=== PATIENT | male | born 1960 | race Caucasian/White ===

== ENCOUNTER 2016-09-08 14:56 | Emergency (ER) | payer BC ==
[2016-09-08] MEDS ORDERED: DOXYcycline CAP(*) 100 MG PO ONE (16:11)
[2016-09-08 17:45] VITALS: BP 148/102
--- NOTE | 2016-10-22 08:12 | ED ---
Skin Complaint - HPI Summary HPI Summary: Patient presents with a tick on his right shoulder that has been there for less than 24 hours, but is clearly irritating his skin. He denies fever, chills, or joint pain. - History of Current Complaint Chief Complaint: EDGeneral Time Seen by Provider: 09/08/16 16:11 Stated Complaint: TICK REMOVAL Hx Obtained From: Patient, Family/Associate Director Of Sales Onset/Duration: Started Hours Ago Skin Exposure Onset/Duration: Hours Ago Timing: Constant Onset Severity: Mild Current Severity: None Pain Intensity: 0 Pain Scale Used: 0-10 Numeric Skin Location: Other: - right posterior shoulder Character: Redness Aggravating Symptom(s): Nothing Alleviating Symptom(s): Nothing Associated Signs & Symptoms: Tenderness Related History: Possible Reaction to: Insect - tick - Allergy/Home Medications Allergies/Adverse Reactions: Allergies Allergy/AdvReac Type Severity Reaction Status Date / Time No Known Allergies Allergy Verified 10/01/16 07:41 PMH/Surg Hx/FS Hx/Imm Hx Cardiovascular History: Reports: Hx Hypertension Infectious Disease History: No Infectious Disease History: Denies: Traveled Outside the [place] in Last 30 Days - Family History Known Family History: Positive: None - Social History Occupation: Employed Full-time Lives: With Family Alcohol Use: None Substance Use Type: Reports: None Smoking Status (MU): Never Smoked Tobacco Review of Systems Negative: Fever, Chills Positive: Other - tick with dime size circumferenc of erythema. Negative: Rash All Other Systems Reviewed And Are Negative: Yes Physical Exam Triage Information Reviewed: Yes Vital Signs On Initial Exam: Initial Vitals Temp Pulse Resp BP Pulse Ox 98.4 F 76 18 154/109 97 09/08/16 14:58 09/08/16 14:58 09/08/16 14:58 09/08/16 14:58 09/08/16 14:58 Vital Signs Reviewed: Yes Appearance: Positive: Well-Appearing, Pain Distress - mild Skin: Positive: Warm, Skin Color Reflects Adequate Perfusion, Dry, Tender, Soft , Erythema @ - tick with dime size circumferenc of erythema Head/Face: Positive: Normal Head/Face Inspection Eyes: Positive: EOMI, KATHYA, Conjunctiva Clear ENT: Positive: Hearing grossly normal Respiratory/Lung Sounds: Positive: Breath Sounds Present Cardiovascular: Positive: RRR Musculoskeletal: Positive: Strength/ROM Intact. Negative: Edema Left, Edema Right Neurological: Positive: Sensory/Motor Intact, Alert, Oriented to Person Place, Time, NV Bundle Intact Distally, Normal Gait Psychiatric: Positive: Affect/Mood Appropriate AVPU Assessment: Alert Procedures - Procedure Summary Procedure Summary: A "Tick-twister" was used to undermine and then twist the tick from the patient' s right shoulder. All parts of the tick appear to have been removed. Patient tolerated procedure well. Diagnostics - Vital Signs Vital Signs Temp Pulse Resp BP Pulse Ox 09/08/16 17:15 97.9 F 70 16 148/102 09/08/16 17:10 99 09/08/16 14:58 98.4 F 76 18 154/109 97 - Laboratory Lab Statement: Any lab studies that have been ordered have been reviewed, and results considered in the medical decision making process. Course/Dx - Differential Diagnoses - Skin Complaint Differential Diagnoses: Abscess, Allergic Reaction, Contact Dermatitis, Foreign Body, Head Lice, Local Allergic Reaction, Scabies, Urticaria - Diagnoses Provider Diagnoses: Tick bite of right shoulder Discharge - Discharge Plan Condition: Stable Disposition: HOME Patient Education Materials: Tick Bite (ED) Referrals: Mindi Strickland NP [Primary Care Provider] - Additional Instructions: Please follow-up with your PCP as needed. Return to the emergency department if symptoms worsen.
== END 2016-09-08 17:15 | disposition home or self-care (01) ==
LOC: ED 14:56
DX: S40.261A Insect bite (nonvenomous) of right shoulder, initial encounter (principal); W57.XXXA Bitten or stung by nonvenomous insect and other nonvenomous arthropods, initial encounter; Y93.9 Activity, unspecified; Y92.9 Unspecified place or not applicable; Y99.9 Unspecified external cause status
CPT/HCPCS: 99281; A9270-GY

== ENCOUNTER 2016-09-08 18:56 | Emergency (ER) | payer BC ==
[2016-09-08 20:34] LABS: Hematocrit 45 % (42-52); Mean Corpuscular HGB Conc 34 g/dl (31-36); Mean Corpuscular Hemoglobin 31 pg (27-31); Mean Corpuscular Volume 91 fL (80-94); Mean Platelet Volume 8 um3 (7.4-10.4); Red Blood Count 4.91 10^6/ul (4.0-5.4); Red Cell Distribution Width 13 % (10.5-15); White Blood Count 6.6 10^3/ul (3.5-10.8)
[2016-09-08 20:49] LABS: Albumin 3.9 g/dL (3.2-5.2); BUN/Creatinine Ratio 15.7 (8-20); EGFR African American 122.4 (>60); EGFR Non-African American 95.2 (>60); Globulin 2.3 g/dL (2-4); Potassium 3.5 mmol/L (3.5-5.0); Total Bilirubin 0.8 mg/dL (0.2-1.0); Total Protein 6.2 g/dL (6.4-8.9)
[2016-09-08 21:18] LABS: Urine Bilirubin Negative (Negative); Urine Glucose Negative (Negative); Urine Nitrite Negative (Negative)
[2016-09-08] MEDS ORDERED: amLODIPine TAB* 5 MG PO ONE (21:32)
--- NOTE | 2016-09-08 21:54 | ED ---
Norberto Song Erika, scribed for Jignesh Monzon MD on 09/08/16 at 2053 . Hypertension - HPI Summary HPI Summary: Patient is a 56-year-old male presenting to the ED with a CC of elevated blood pressure. Pt reports that this evening, his BP was 158/120. Patient denies diagnosis of HTN, and states he can only recall one other time when his blood pressure was elevated. He states he does not take his blood pressure regularly, but at his last physical last year it was around 122/80. Patient denies fatigue , lightheadedness, dizziness, headache, slurred speech, focal weakness, chills, chest pain, SOB, abdominal pain, and urinary symptoms. He reports slight nasal congestion, but has not taken any medications for this. Patient was seen earlier today for tick removal from the posterior right shoulder. Patient denies Hx diabetes, hyperlipidemia. FHx diabetes. He denies FHx HTN. Patient does not smoke, and drinks daily. 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 - History of Current Complaint Chief Complaint: EDHypertension Stated Complaint: HIGH BP/LEFT 1 HR AGO Time Seen by Provider: 09/08/16 20:00 Hx Obtained From: Patient, Family/Multilith Operator - Onset/Duration: Started Hours Ago, Atraumatic, Still Present Timing: Constant Reported Blood Pressure Prior To Arrival: 158/120 Aggravating Factor(s): Nothing Alleviating Factor(s): Nothing Associated Signs & Symptoms: Negative - Allergies/Home Medications Allergies/Adverse Reactions: Allergies Allergy/AdvReac Type Severity Reaction Status Date / Time No Known Allergies Allergy Verified 09/08/16 14:58 PMH/Surg Hx/FS Hx/Imm Hx Endocrine/Hematology History: Denies: Hx Diabetes Cardiovascular History: Denies: Hx Hypercholesterolemia Infectious Disease History: No Infectious Disease History: Denies: Traveled Outside the [place] in Last 30 Days - Family History Known Family History: Positive: Diabetes Negative: Hypertension - Social History Occupation: Employed Full-time Lives: With Family Alcohol Use: Daily Hx Substance Use: No Substance Use Type: Reports: None Hx Tobacco Use: No Smoking Status (MU): Never Smoked Tobacco Review of Systems Constitutional: Other - elevated BP Negative: Chills, Fatigue Positive: Nasal Discharge Negative: Chest Pain Negative: Shortness Of Breath Negative: Abdominal Pain Negative: dysuria, frequency Negative: Headache, Weakness, Slurred Speech All Other Systems Reviewed And Are Negative: Yes Physical Exam - Summary Physical Exam Summary: The patient is well-nourished in no acute distress and in no acute pain. The skin is warm and dry and skin color reflects adequate perfusion. HEENT: The head is normocephalic and atraumatic. The pupils are equal and reactive. The conjunctivae are clear and without drainage. Nares are patent and without drainage. Mouth reveals moist mucous membranes and the throat is without erythema and exudate. The external ears are intact. The ear canals are patent and without drainage. The tympanic membranes are intact. Neck is supple with full range of motion and non-tender. There are no carotid bruits. There is no neck vein distension. Respiratory: Chest is non-tender. Lungs are clear to auscultation and breath sounds are symmetrical and equal. Cardiovascular: Heart is regular rate and rhythm. There is no murmur or rub auscultated. There is no peripheral edema and pulses are symmetrical and equal. Abdomen: The abdomen is soft and non-tender. There are normal bowel sounds heard in all four quadrants and there is no organomegaly palpated. Musculoskeletal: There is no back pain noted. Extremities are non-tender with full range of motion. There is good capillary refill. There is no peripheral edema or calf tenderness elicited. Neurological: Patient is alert and oriented to person, place and time. The patient has symmetrical motor strength in all four extremities. Cranial nerves are grossly intact. Deep tendon reflexes are symmetrical and equal in all four extremities. Psychiatric: The patient has an appropriate affect and does not exhibit any anxiety or depression. Triage Information Reviewed: Yes Vital Signs On Initial Exam: Initial Vitals Temp Pulse Resp BP Pulse Ox 98.2 F 68 18 149/100 97 09/08/16 19:02 09/08/16 19:02 09/08/16 19:02 09/08/16 19:02 09/08/16 19:02 Vital Signs Reviewed: Yes Diagnostics - Vital Signs Vital Signs Temp Pulse Resp BP Pulse Ox 09/08/16 19:02 98.2 F 68 18 149/100 97 - Laboratory Lab Results: Lab Results 09/08/16 09/08/16 09/08/16 Range/Units 20:20 20:20 21:09 WBC 6.6 (3.5-10.8) 10^3/ul RBC 4.91 (4.0-5.4) 10^6/ul Hgb 15.0 (14.0-18.0) g/dl Hct 45 (42-52) % MCV 91 (80-94) fL MCH 31 (27-31) pg MCHC 34 (31-36) g/dl RDW 13 (10.5-15) % Plt Count 230 (150-450) 10^3/ul MPV 8 (7.4-10.4) um3 Neut % (Auto) 64.3 (38-83) % Lymph % (Auto) 23.7 L (25-47) % [place] % (Auto) 10.0 H (1-9) % Eos % (Auto) 1.7 (0-6) % Baso % (Auto) 0.3 (0-2) % Absolute Neuts (auto) 4.3 (1.5-7.7) 10^3/ul Absolute Lymphs (auto) 1.6 (1.0-4.8) 10^3/ul Absolute Monos (auto) 0.7 (0-0.8) 10^3/ul Absolute Eos (auto) 0.1 (0-0.6) 10^3/ul Absolute Basos (auto) 0 (0-0.2) 10^3/ul Absolute Nucleated RBC 0 10^3/ul Nucleated RBC % 0 Sodium 138 (133-145) mmol/L Potassium 3.5 (3.5-5.0) mmol/L Chloride 108 (101-111) mmol/L Carbon Dioxide 25 (22-32) mmol/L Anion Gap 5 (2-11) mmol/L BUN 13 (6-24) mg/dL Creatinine 0.83 (0.67-1.17) mg/dL Est GFR ( Amer) 122.4 (>60) Est GFR (Non-Af Amer) 95.2 (>60) BUN/Creatinine Ratio 15.7 (8-20) Glucose 112 H (70-100) mg/dL Calcium 9.0 (8.6-10.3) mg/dL Total Bilirubin 0.80 (0.2-1.0) mg/dL AST 17 (13-39) U/L ALT 19 (7-52) U/L Alkaline Phosphatase 51 (34-104) U/L Total Protein 6.2 L (6.4-8.9) g/dL Albumin 3.9 (3.2-5.2) g/dL Globulin 2.3 (2-4) g/dL Albumin/Globulin Ratio 1.7 (1-3) Urine Color Yellow Urine Appearance Clear Urine pH 5.0 (5-9) Ur Specific Opal 1.020 (1.010-1.030) Urine Protein Negative (Negative) Urine Ketones Trace H (Negative) Urine Blood Negative (Negative) Urine Nitrate Negative (Negative) Urine Bilirubin Negative (Negative) Urine Urobilinogen Negative (Negative) Ur Leukocyte Esterase Negative (Negative) Urine Glucose Negative (Negative) Result Diagrams: 09/08/16 20:20 09/08/16 20:20 Lab Statement: Any lab studies that have been ordered have been reviewed, and results considered in the medical decision making process. - EKG 20:25 Cardiac Rate: NL - at 68 bpm EKG Rhythm: Sinus Rhythm EKG Interpretation: Nml axis. No ST elevation. No STEMI Hypertension Course/Dx - Course Assessment/Plan: Patient is a 56-year-old male presenting to the ED with a CC of asymptomatic elevated blood pressure. He states his pressure was 158/120 today, and he is 144/98 in the ED. Reviewing past records reveals that patient' s blood pressure has been elevated on prior visits as well. Pt is started on amlodipine and discharged home with follow up from his PCP. He is instructed to start a heart healthy diet, and to cut his alcohol and salt intake. - Diagnoses Differential Diagnosis/HQI PQRI: Hypertension, Hypertensive Crisis, Hypertensive Urgency Provider Diagnoses: Hypertension Discharge - Discharge Plan Condition: Stable Disposition: HOME Prescriptions: amLODIPine TAB* [Norvasc TAB*] 2.5 mg PO DAILY #30 tab Patient Education Materials: Amlodipine (By mouth), Hypertension (ED), Heart Healthy Diet (ED) Referrals: Mindi Strickland NP [Primary Care Provider] - Additional Instructions: Please follow up with your PCP. Follow a heart healthy diet, and limit alcohol and salt intake. The documentation as recorded by the Norberto barry Erika accurately reflects the service I personally performed and the decisions made by , Jignesh Monzon MD.
[2016-09-08 22:34] VITALS: BP 140/95
== END 2016-09-08 22:33 | disposition home or self-care (01) ==
LOC: ED 18:56
DX: I10 Essential (primary) hypertension (principal)
CPT/HCPCS: 36415; 80053; 81003; 85025; 93005; 99282; 99283; A9270-GY

== ENCOUNTER 2016-10-01 07:38 | Emergency (ER) | payer BC ==
[2016-10-01] MEDS ORDERED: Tetan/Diph/Pertus SYR(Tdap)* 0.5 ML SYR(BOOSTRIX) use SYR IM ONE (08:08)
[2016-10-01 08:18] VITALS: BP 129/89
--- NOTE | 2016-10-01 09:18 | ED ---
Skin Complaint - HPI Summary HPI Summary: Patient presents to the ED with CC of right hand redness, pain and swelling this morning after he sustained a small cut no the dorsum of the hand last evening. He immediately washed it out with hydrogen peroxide last evening. He decided to come in today d/t his recent symptoms. Denies numbness or tingling. Able to move fingers with some limitations d/t swelling. Denies fever or recent illness. patient takes amlodipine daily, but denies other health problems. - History of Current Complaint Chief Complaint: EDRashSkinAbscess Time Seen by Provider: 10/01/16 07:59 Stated Complaint: HAND INJURY, POSSIBEL INFECTION Hx Obtained From: Patient Onset/Duration: Started Hours Ago Skin Exposure Onset/Duration: Days Ago Timing: Constant Onset Severity: Moderate Current Severity: Moderate Pain Intensity: 3 Pain Scale Used: 0-10 Numeric Skin Location: Hand Character: Swelling, Pain, Redness, Painful Alleviating Symptom(s): Nothing Associated Signs & Symptoms: Negative Related History: Trauma - small knife to dorsum of hand - Allergy/Home Medications Allergies/Adverse Reactions: Allergies Allergy/AdvReac Type Severity Reaction Status Date / Time No Known Allergies Allergy Verified 10/01/16 07:41 PMH/Surg Hx/FS Hx/Imm Hx Previously Healthy: Yes Endocrine/Hematology History: Denies: Hx Diabetes Cardiovascular History: Denies: Hx Hypercholesterolemia Infectious Disease History: No Infectious Disease History: Denies: Traveled Outside the [place] in Last 30 Days - Family History Known Family History: Positive: Diabetes Negative: Hypertension - Social History Occupation: Employed Full-time Lives: With Family Alcohol Use: Daily Alcohol Amount: 3-4 drinks daily Hx Substance Use: No Substance Use Type: Reports: None Hx Tobacco Use: No Smoking Status (MU): Never Smoked Tobacco Review of Systems Constitutional: Negative Cardiovascular: Negative Respiratory: Negative Positive: no symptoms reported, see HPI Musculoskeletal: Negative Positive: Other Neurological: Negative Psychological: Normal All Other Systems Reviewed And Are Negative: Yes Physical Exam Triage Information Reviewed: Yes Vital Signs On Initial Exam: Initial Vitals Temp Pulse Resp BP Pulse Ox 96.5 F 83 18 127/95 97 10/01/16 07:41 10/01/16 07:41 10/01/16 07:41 10/01/16 07:41 10/01/16 07:41 Vital Signs Reviewed: Yes Appearance: Positive: Well-Appearing, Well-Nourished Skin: Positive: Warm, Skin Color Reflects Adequate Perfusion, Other - erythema, swelling and warmth to dorsum of hand Head/Face: Positive: Normal Head/Face Inspection Eyes: Positive: EOMI, KATHYA, Conjunctiva Clear Neck: Positive: Supple Respiratory/Lung Sounds: Positive: Clear to Auscultation, Breath Sounds Present Cardiovascular: Positive: Normal, RRR Bowel Sounds: Positive: Present Neurological: Positive: Normal, Sensory/Motor Intact, Alert, Oriented to Person Place, Time, Speech Normal Psychiatric: Positive: Normal AVPU Assessment: Alert - [place] Coma Scale Coma Scale Total: 15 Diagnostics - Vital Signs Vital Signs Temp Pulse Resp BP Pulse Ox 10/01/16 08:29 98.1 F 79 18 129/89 10/01/16 08:00 79 129/89 95 10/01/16 07:53 98.0 F 10/01/16 07:51 81 95 10/01/16 07:49 134/90 10/01/16 07:41 96.5 F 83 18 127/95 97 - Laboratory Lab Statement: Any lab studies that have been ordered have been reviewed, and results considered in the medical decision making process. Course/Dx - Course Course Of Treatment: Tetanus updated. Keflex 7 days rx. swelling, warmth and redness, but able to move hand with limitations d/t moderate swelling. Return precautions given. laceration OK and healed. - Differential Diagnoses - Skin Complaint Differential Diagnoses: Abscess, Cellulitis, Impetigo, Urticaria - Diagnoses Provider Diagnoses: cellulitis Discharge - Discharge Plan Condition: Stable Disposition: HOME Prescriptions: Cephalexin CAP* [Keflex CAP*] 500 mg PO QID #28 cap Patient Education Materials: Cellulitis (ED) Referrals: Mindi Strickland NP [Primary Care Provider] - Additional Instructions: If you notice worsening swelling, red streaking, unable to move fingers, numbness or tingling in the fingers, fever or pain, please come back to the ED. You will be on Cephalexin (Keflex) four times per day for 7 days. Do not stop taking this medication, even if you begin to feel better. Stop taking the medication if you develop a reaction and return to ED. Images - Images Hands: 1 - kendall avendaño, swelling
== END 2016-10-01 08:29 | disposition home or self-care (01) ==
LOC: ED 07:38
DX: L03.113 Cellulitis of right upper limb (principal); S61.411A Laceration without foreign body of right hand, initial encounter; W26.0XXA Contact with knife, initial encounter; Y93.9 Activity, unspecified; Y92.9 Unspecified place or not applicable
CPT/HCPCS: 90471; 90715; 99282

== ENCOUNTER 2017-10-23 08:04 | Emergency (ER) | payer BC ==
[2017-10-23] MEDS ORDERED: DOXYcycline CAP(*) 100 MG PO ONE (09:13)
--- NOTE | 2017-10-23 09:17 | ED ---
Skin Complaint - HPI Summary HPI Summary: 57-year-old presents to ED with complaints of right thigh tick bite that he noticed today. States he has been outside and he does have pets and thinks it was from 1-2 days ago. States he noticed bruising around the site. Denies any bullseye rash. Denies any pain. States it itches badly. States last and edited by this very itchy and similar bruising. States this is just like the last tick bite he had. Denies removing the tick bite thinks it detached itself. Does admit to a fall a few days ago tripping over a recycling been causing some other bruising on the family. However is not in any pain or discomfort. No redness or swelling. No past medical history other than hypertension. Has not taken any medications. - History of Current Complaint Chief Complaint: EDRashSkinAbscess Time Seen by Provider: 10/23/17 08:41 Stated Complaint: TICK BITE Hx Obtained From: Patient Onset/Duration: Started Days Ago Skin Exposure Onset/Duration: Days Ago Timing: Constant Current Severity: None Pain Intensity: 0 Pain Scale Used: 0-10 Numeric Skin Location: Discrete - right inner thigh Aggravating Symptom(s): Nothing Alleviating Symptom(s): Nothing Associated Signs & Symptoms: Negative Related History: Insect Bite/Sting - possible tick bite, Possible Reaction to: Insect - tick - Allergy/Home Medications Allergies/Adverse Reactions: Allergies Allergy/AdvReac Type Severity Reaction Status Date / Time No Known Allergies Allergy Verified 10/23/17 08:06 Home Medications: Home Medications amLODIPine TAB* [Norvasc TAB*] 5 mg PO DAILY 10/23/17 [History Confirmed ] PMH/Surg Hx/FS Hx/Imm Hx Endocrine/Hematology History: Denies: Hx Diabetes Cardiovascular History: Reports: Hx Hypertension Denies: Hx Hypercholesterolemia - Surgical History Surgery Procedure, Year, and Place: n/a - Immunization History Immunizations Up to Date: Yes Infectious Disease History: Yes Infectious Disease History: Denies: Traveled Outside the [place] in Last 30 Days - Family History Known Family History: Positive: Diabetes Negative: Hypertension - Social History Alcohol Use: Daily Alcohol Amount: 3-4 drinks daily Hx Substance Use: No Substance Use Type: Reports: None Hx Tobacco Use: No Smoking Status (MU): Never Smoked Tobacco Review of Systems Constitutional: Negative Cardiovascular: Negative Respiratory: Negative Positive: Bruising - right thigh, Other - possible tick bite Neurological: Negative All Other Systems Reviewed And Are Negative: Yes Physical Exam Triage Information Reviewed: Yes Vital Signs On Initial Exam: Initial Vitals Temp Pulse Resp BP Pulse Ox 98.8 F 87 16 143/93 97 10/23/17 08:06 10/23/17 08:06 10/23/17 08:06 10/23/17 08:06 10/23/17 08:06 Vital Signs Reviewed: Yes Appearance: Positive: Well-Appearing, No Pain Distress, Well-Nourished Skin: Positive: Warm, Skin Color Reflects Adequate Perfusion, Dry, Other - Ecchymosis/contusion noted to inner thigh diffuse and around potential tick bite area. No tick was visualized, scab was noted. Did remove scab to ensure no tick body parts/foreign body was present. Wound was irrigated. No erythema migrans rash noted no tenderness, foreign body, swelling, significant erythema. Rest of skin exam unremarkable. Negative: Cold, Numb, Tender, Cyanosis @, Pale, Jun Tracts, Erythema @ Head/Face: Positive: Normal Head/Face Inspection Eyes: Positive: Normal ENT: Positive: Pharynx normal Neck: Positive: Supple, Nontender Respiratory/Lung Sounds: Positive: Clear to Auscultation, Breath Sounds Present. Negative: Rales, Rhonchi, Wheezes Cardiovascular: Positive: Normal, RRR, Pulses are Symmetrical in both Upper and Lower Extremities. Negative: Murmur, Rub Bowel Sounds: Positive: Present Musculoskeletal: Positive: Normal, Strength/ROM Intact Neurological: Positive: Normal, Sensory/Motor Intact, Alert, Oriented to Person Place, Time, NV Bundle Intact Distally, Normal Gait Diagnostics - Vital Signs Vital Signs Temp Pulse Resp BP Pulse Ox 10/23/17 08:06 98.8 F 87 16 143/93 97 - Laboratory Lab Statement: Any lab studies that have been ordered have been reviewed, and results considered in the medical decision making process. Course/Dx - Course Course Of Treatment: Scab was removed from inner thigh attention or no foreign body parts or tick parts were present. Without palpitation. Wound was irrigated. Given prophylactic doxycycline while in ED. Keep wound clean and dry. Aware worsening signs and symptoms to watch out for. Other concerns or complaints. Rest of physical exam normal, normal vitals. - Differential Diagnoses - Skin Complaint Differential Diagnoses: Cellulitis, Contact Dermatitis, Other - tick bite , ecchymosis, contusion - Diagnoses Provider Diagnoses: Tick bite Discharge - Sign-Out/Discharge Documenting (check all that apply): Discharge - Discharge Plan Condition: Good Disposition: HOME Patient Education Materials: Tick Bite (ED) Referrals: Minid Strickland NP [Primary Care Provider] - Additional Instructions: Keep area clean and dry. Recommend applying triple antibiotic ointment. Follow up with PCP. Any new or worsening signs/symptoms please seek medical attention promptly, as we discussed. - Billing Disposition and Condition Condition: GOOD Disposition: HOME
[2017-10-23 09:31] VITALS: BP 130/90
== END 2017-10-23 09:30 | disposition home or self-care (01) ==
LOC: ED 08:04
DX: S70.361A Insect bite (nonvenomous), right thigh, initial encounter (principal); W57.XXXA Bitten or stung by nonvenomous insect and other nonvenomous arthropods, initial encounter; Y92.9 Unspecified place or not applicable; I10 Essential (primary) hypertension
CPT/HCPCS: 99281; A9270-GY